=== PATIENT | male | born 1985 | race Caucasian/White ===

== ENCOUNTER 2018-12-27 11:37 | Emergency (ER) | payer SELFPAY ==
--- NOTE | 2018-12-27 11:40 | UC ---
General HPI - HPI Summary HPI Summary: 33 yo gentleman c/o feeling bad since Wed (today is Sun), + fever today. Cough significantly last couple days. No rash. Last po approx 2 hours prior to CCC. No rash. Cough minimal productive. No sob / cp. 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 Denies diarrhea, melena. Denies urinary sx, he is urinating ok. + sick contact(s) possible at work. + sore throat, head congestion. - History of Current Complaint Stated Complaint: SORE THOAT/FLU Hx Obtained From: Patient - Allergy/Home Medications Allergies/Adverse Reactions: Allergies Allergy/AdvReac Type Severity Reaction Status Date / Time No Known Allergies Allergy Verified 12/27/18 11:51 Home Medications: Home Medications DULoxetine DR CAP* [Cymbalta CAP*] 60 mg PO DAILY 12/27/18 [History Confirmed ] PMH/Surg Hx/FS Hx/Imm Hx Previously Healthy: Yes - Surgical History Surgery Procedure, Year, and Place: jaw surgery 2 2002. nasal surgery 04/2005 - Family History Known Family History: Positive: None - Social History Substance Use Type: None Review of Systems All Other Systems Reviewed And Are Negative: Yes Constitutional: Positive: Fever, Fatigue Skin: Positive: Other - see hpi Eyes: Positive: Other - see hpi ENT: Positive: Sore Throat, Nasal Discharge, Sinus Congestion, Other - see hpi Respiratory: Positive: Cough, Other - see hpi Cardiovascular: Positive: Other - see hpi Gastrointestinal: Positive: Other - see hpi Genitourinary: Positive: Other - see hpi Motor: Positive: Negative Neurovascular: Positive: Negative Musculoskeletal: Positive: Negative Neurological: Positive: Other - see hpi Psychological: Positive: Negative Is Patient Immunocompromised?: No Physical Exam Triage Information Reviewed: Yes Appearance: Well-Nourished, Other: - sitting up initially for examination. Looks tired but NAD. However he is diaphoretic (just vomited), a little pale. No visible or reported rash. Vital Signs Reviewed: Yes Eye Exam: Normal - grossly normal ENT: Positive: Pharyngeal erythema, Tonsillar swelling, Other - + bilat cerumen impaction, tM's not visible. Neck: Positive: Supple, Nontender, No Lymphadenopathy Respiratory Exam: Other - + cough, rhonchorus. No other adventious sounds appreciated during exam. NAD. No rtx. Respiratory: Positive: No respiratory distress, No accessory muscle use Cardiovascular Exam: Other - HR 110's - 120's (at my pe) Cardiovascular: Positive: Pulses Normal, Brisk Capillary Refill Abdominal Exam: Other - soft ND, mild midepig tender. No r/b. + nabs. No cvat. Musculoskeletal Exam: Normal - gait steady, moves x 4 ext's Neurological Exam: Normal - grossly nonfocal Psychological Exam: Normal - conversing easily and appropriately Skin Exam: Normal - see above o/w ok Course/Dx - Course Course Of Treatment: IV NS x 1 L. Zofran 4mg IV x 1. INfluenza A/B neg. RST neg. Chest xray ordered. 1pm - recheck. A little better, HR 100's. Total 2 liters ns. Tolerated well. No new issues. Feels better s/p fluids. Plans to go to pharmacy to [facility] meds after leaving here. CBC back at time if d/c, reviewed with pt. Questions as posed answered to the best of my ability. Encourage f/u pcp. [facility] [place]. - Diagnoses Provider Diagnosis: Pneumonia, Dehydration Discharge - Sign-Out/Discharge Documenting (check all that apply): Patient Departure All imaging exams completed and their final reports reviewed: Yes - Discharge Plan Condition: Stable Disposition: HOME Prescriptions: Albuterol HFA INHALER* [Ventolin HFA Inhaler*] 1 - 2 puff INH Q4H PRN #1 mdi PRN Reason: Wheezing Amoxicillin/Clavulanate TAB* [Augmentin TAB 875*] 875 mg PO BID #28 tab Benzonatate CAP* [Tessalon 100 MG CAP*] 100 mg PO TID PRN #30 cap PRN Reason: Cough guaiFENesin/CODIEN 100MG-10MG* [Robitussin AC 100Mg-10Mg*] 10 ml PO Q4H PRN # 200 ml MDD 40ml PRN Reason: Cough Patient Education Materials: Pneumonia (ED) Forms: *Work Release Referrals: [facility] [place] [Outside] Additional Instructions: Please follow up with a primary care physician, as soon as you are able. Within the next couple weeks if possible. Please go to the Emergency Department for worse or new problems in the meantime. Drink plenty of fluids. Blood work pending. - Billing Disposition and Condition Condition: STABLE Disposition: Home
[2018-12-27] MEDS ORDERED: Ondansetron INJ* 2 MG/ML VIAL IV ONE (12:06)
[2018-12-27] MEDS ORDERED: NS 0.9% 1000 ML** 1,000 ML IV ONE ×2 (12:07→13:02)
[2018-12-27 12:15] LABS: Influenza A Molecular NEGATIVE (Negative); Influenza B Molecular NEGATIVE (Negative)
[2018-12-27] MEDS ORDERED: Acetaminophen ADULT LIQ* 650 MG/20.3 ML UDC PO ONE (14:05)
[2018-12-27 14:09] LABS: ABS Basophils 0 10^3/ul (0-0.2); ABS Eosinophils 0.1 10^3/ul (0-0.6); ABS Lymphocytes 1.4 10^3/ul (1.0-4.8); ABS Monocytes 1.2 10^3/ul (0-0.8); ABS Neutrophils 7.8 10^3/ul (1.5-7.7); ABS Nucleated RBC 0 10^3/ul; Eosinophil % 0.6 %; Hematocrit 46 % (42-52); Hemoglobin 15.9 g/dl (14.0-18.0); Lymphocyte % 13.6 %; Mean Corpuscular HGB Conc 34 g/dl (31-36); Mean Corpuscular Hemoglobin 31 pg (27-31); Mean Corpuscular Volume 89 fL (80-94); Mean Platelet Volume 9.1 fL (7.4-10.4); Nucleated Red Blood Cells % 0; Platelet Count 191 10^3/ul (150-450); Red Blood Count 5.22 10^6/ul (4.00-5.40); Red Cell Distribution Width 13 % (10.5-15); White Blood Count 10.6 10^3/ul (3.5-10.8)
[2018-12-27 14:23] LABS: Calcium 8.5 mg/dL (8.6-10.3); Magnesium 1.8 mg/dL (1.9-2.7); Potassium 3.8 mmol/L (3.5-5.0); Total Bilirubin 0.5 mg/dL (0.2-1.0)
[2018-12-27 14:30] LABS: Albumin/Globulin Ratio 1.4 (1-3); C Reactive Protein 63.9 mg/L (<8.01); EGFR African American 113.9 (>60); EGFR Non-African American 94.2 (>60); Globulin 2.8 g/dL (2-4); Total Protein 6.8 g/dL (6.4-8.9)
[2018-12-27 14:54] VITALS: BP 144/84
== END 2018-12-27 14:40 | disposition home or self-care (01) ==
LOC: UCEAST 11:37
DX: J18.9 Pneumonia, unspecified organism (principal); E86.0 Dehydration; H61.23 Impacted cerumen, bilateral
CPT/HCPCS: 36415; 71046; 80053; 83690; 83735; 85025; 86140; 87651; 96360; 96374; 99202; A9270-GY; G0463; J2405